=== PATIENT | female | born 1950 | race Caucasian/White ===

== ENCOUNTER 2024-08-29 11:36 | Emergency (ER) | payer OTHER ==
--- NOTE | 2024-08-29 13:07 | RAD REPORT ---
EXAMINATION: US LEFT LOWER EXTREMITY VENOUS DOPPLER CLINICAL INDICATION: [facility] MAIN left lower ext SWELLING Bed Name: 2 Y TECHNIQUE: Complete bilateral duplex sonography of the LEFT lower extremity veins was performed. The examination included compression for vein patency, color Doppler imaging and flow augmentation in response to distal compression of the distal external iliac, common femoral, femoral, popliteal, tibi al, and great and small saphenous veins. COMPARISON: No prior exam. FINDINGS: Duplex sonography testing of the veins of the LEFT lower extremity was performed. Color flow imaging extensive hypoechoic occlusive thrombus starting at the popliteal artery, to the level of the common femoral vein. The posterior tibial veins are patent and compressible. Mild subcutaneous soft t issue edema. IMPRESSION: Extensive DVT of the left lower extremity from the level of the popliteal vein to the common femoral vein. THIS REPORT CONTAINS FINDINGS THAT MAY BE CRITICAL TO PATIENT CARE. Preliminary findings were communi cated by the performing machine rigger to RON Short on 08/29/2024 12:20 PM..
[2024-08-29 13:08] LABS: Absolute Basophils 0.1 K/uL (0-0.5); Absolute Eosinophils 0.7 K/uL (0-0.5); Absolute Lymphocytes (CBC) 1.2 K/uL (0.7-4.9); Absolute Monocytes 0.4 K/uL (0.1-1.3); Absolute Neutrophil 4.3 K/uL (1.8-8.0); Basophils % 0.8 % (0-1.3); Eosinophils % 10.2 % (0-4.4); Hematocrit 32.5 % (36.0-45.0); Lymphocytes % 18.6 % (15.3-44.8); MCH 29.8 pg (27.0-35.0); MCHC 33.9 g/dL (32.0-36.0); MCV 87.8 fL (80-100); MPV 7.2 fL (7.6-11.3); Monocytes % 6.3 % (3.3-12.3); Neutrophils % 64.1 % (41.7-73.7); Platelets 271 thou/uL (152-406); Red Cell Distribution Width 12.7 % (12.1-15.2)
[2024-08-29 13:27] LABS: Anion Gap 8.4 mEq/L (5.0-15.0); Potassium 3.4 mEq/L (3.5-5.1); Troponin High Sensitivity 7.6 pg/mL (<58.9)
--- NOTE | 2024-08-29 14:33 | RAD REPORT ---
EXAM: CT Chest For Pe Angio TECHNIQUE: CT angiogram of the chest was performed following intravenous contrast administration, inc luding sagittal and coronal as well as maximum intensity projection reformats. One or more of the following dose reduction techniques were used: Automated exposure control, adjustment of the mA and k V according to patient size, and iterative reconstruction. Unless otherwise specified, incidental findings do not require dedicated imaging follow-up. INDICATION: [facility] MAIN PE Bed Name: 2 Y COMPARISON: None. FINDINGS: LINES/TUBES: None. PULMONARY ARTERIES: Main pulmonary arteries are normal in caliber. No filling defects within the pul monary arteries to suggest pulmonary embolus. LUNGS AND AIRWAYS: The lungs and central airways are normal without focal abnormality apart from mild bibasilar platelike atelectasis. PLEURA: No effusion or pneumothorax. HEART AND MEDIASTINUM: The visualized thyroid gland is normal. No mediastinal, hilar, or axillary lym phadenopathy. Heart is unremarkable. No pericardial effusion. SOFT TISSUES AND BONES: No acute osseous abnormality. No significant soft tissue finding. UPPER ABDOMEN: Unremarkable. IMPRESSION: No evidence of acute central pulmonary emboli. No suspicious intrathoracic findings..
--- NOTE | 2024-08-29 15:02 | ER ---
Nurse's Notes [facility] Name: Viola Gilbert Age: 74 yrs Sex: Female : 1950 Arrival Date: 08/29/2024 Time: 11:36 Bed 2 Private MD: Diagnosis: Acute embolism and thrombosis of other specified deep vein of left lower extremity Presentation: 08/29 11:58 Chief complaint: Patient states: LLE EDEMA x2 WK, DENIES TRAUMA. Coronavirus screen: At bp this time, the client does not indicate any symptoms associated with coronavirus-19. Ebola Screen: No symptoms or risks identified at this time. Initial Sepsis Screen: Does the patient meet any 2 criteria? No. Patient's initial sepsis screen is negative. Does the patient have a suspected source of infection? No. Patient's initial sepsis screen is negative. Risk Assessment: Do you want to hurt yourself or someone else? Patient reports no desire to harm self or others. Onset of symptoms is unknown. 11:58 Method Of Arrival: Ambulatory bp 11:58 Acuity: CAROLYN 4 bp Triage Assessment: 11:59 General: Appears in no apparent distress. Behavior is calm, cooperative, appropriate bp for age. Pain: Complains of pain in left leg. EENT: No deficits noted. Neuro: No deficits noted. Cardiovascular: No deficits noted. Respiratory: No deficits noted. GI: No signs and/or symptoms were reported involving the gastrointestinal system. : No signs and/or symptoms were reported regarding the genitourinary system. Derm: No deficits noted. Musculoskeletal: Swelling present in left leg. Historical: - Allergies: 11:59 Codeine; bp - PMHx: 11:59 Hypertensive disorder; bp - Immunization history:: Adult Immunizations up to date. - Infectious Disease History:: Denies. - Social history:: Smoking status: Patient denies any tobacco usage or history of. Screenin:[facility] ED Fall Risk Assessment (Adult) History of falling in the last 3 months, bp including since admission No falls in past 3 months (0 pts) Confusion or Disorientation No (0 pts) Intoxicated or Sedated No (0 pts) Impaired Gait No (0 pts) Mobility Assist Device Used No (0 pt) Altered Elimination No (0 pt) Score/Fall Risk Level 0 - 2 = Low Risk. Abuse screen: Denies threats or abuse. Denies injuries from another. Nutritional screening: No deficits noted. Tuberculosis screening: No symptoms or risk factors identified. Assessment: 12:00 General: Appears in no apparent distress. comfortable. bp 14:00 Reassessment: Patient appears in no apparent distress at this time. Patient is alert, bp oriented x 3, equal unlabored respirations, skin warm/dry/pink. 16:09 Reassessment: ADMIT CANCELLED. PT DC HOME. bp Vital Signs: 11:58 BP 169 / 82; Pulse 87; Resp 16; Temp 98; Pulse Ox 100% ; Weight 61 kg; Height 5 ft. 3 bp in. ; 16:09 BP 155 / 78; Pulse 82; Resp 16; Pulse Ox 100% ; bp 11:58 Body Mass Index 23.82 (61.00 kg, 160.02 cm) bp ED Course: 11:41 Patient arrived in ED. ra3 11:46 Miriam Mcwilliams FNP-C is PHCP. kb 11:46 Cooper Knowles MD is Attending Physician. kb 11:54 Chele Dunbar, LAQUITA is Primary Nurse. bp 11:59 Triage completed. bp 11:59 Arm band placed on. bp 12:00 Patient has correct armband on for positive identification. bp 12:25 US Extremity Venous Unilateral Ltd In Process Unspecified. EDMS 12:53 Initial lab(s) drawn, by ED staff, sent to lab. EKG done, by ED staff, reviewed by bp Miriam CLARKE. Inserted saline lock: 20 gauge in left antecubital area, using aseptic technique. Blood collected. Flushed with 10 mL NS. 13:21 PHCP role handed off by Miriam Mcwilliams FNP-C kb 13:21 Chan Akhtar FNP-C is PHCP. kb 14:08 CT Chest For PE Angio In Process Unspecified. EDMS 15:01 Cristopher Castañeda MD is Hospitalizing Provider. dr5 16:09 No provider procedures requiring assistance completed. IV discontinued, intact, bp bleeding controlled, No redness/swelling at site. Pressure dressing applied. Administered Medications: 15:30 Drug: Enoxaparin Sub-Q 1 mg/kg Sub-Q once Route: Sub-Q; Site: right lower abdomen; ss 16:08 Follow up: Response: No adverse reaction bp Medication: 12:00 VIS not applicable for this client. bp Outcome: 15:02 Decision to Hospitalize by Provider. dr5 15:55 Discharge ordered by . dr5 16:09 Discharged to home ambulatory, with family, bp 16:09 Condition: stable 16:09 Discharge instructions given to patient, Instructed on discharge instructions, follow up and referral plans. medication usage, Demonstrated understanding of instructions, follow-up care, medications, Prescriptions given X 1, 16:10 Patient left the ED. bp Signatures: Dispatcher [employer] EDMS Miriam Mcwilliams, [facility] [employer]-Ckb Sweetie Borja, RN RN ss Chele Dunbar, LAQUITA RN bp Divina Barbour ra3 Chan Akhtar FNP-C [facility] SALES-Cdr5 Corrections: (The following items were deleted from the chart) 15:13 11:58 BP 169 / 82; Pulse 87bpm; Resp 16bpm; Pulse Ox 100%; Temp 98F; bp bp
--- NOTE | 2024-08-29 15:02 | EDPHYS ---
Physician Documentation [facility] Name: Viola Gilbert Age: 74 yrs Sex: Female : 1950 Arrival Date: 08/29/2024 Time: 11:36 Bed 2 Private MD: ED Physician Copoer Knowles HPI: 08/29 11:52 This 74 yrs old Female presents to ER via Unassigned with complaints of Leg Swelling - kb left. 11:52 Pt is a 74 year old female who presents for left lower extremity edema that has been kb intermittent for 2 weeks. States she was doing yard work prior to his and was bitten by some insects. STates her had the same thing happen, but he is better and hers has continued. Denies fever, shortness of breath. . Historical: - Allergies: 11:59 Codeine; bp - PMHx: 11:59 Hypertensive disorder; bp - Immunization history:: Adult Immunizations up to date. - Infectious Disease History:: Denies. - Social history:: Smoking status: Patient denies any tobacco usage or history of. ROS: 11:52 Constitutional: As per HPI kb Exam: 11:52 Constitutional: This is a well developed, well nourished patient who is awake, alert, kb and in no acute distress. Head/Face: Normocephalic, atraumatic. ENT: Moist Mucous membranes Cardiovascular: Regular rate Respiratory: Respirations even and unlabored. No increased work of breathing. Talking in full sentences Skin: Warm, dry with normal turgor. Normal color. Neuro: Awake and alert, GCS 15, oriented to person, place, time, and situation. 11:52 Musculoskeletal/extremity: Extremities: grossly normal except: noted in the left leg: swelling, ROM: intact in all extremities, Circulation is intact in all extremities. Sensation intact. Weight bearing: able to fully bear weight, 13:25 ECG was reviewed by the Attending Physician. kb Vital Signs: 11:58 BP 169 / 82; Pulse 87; Resp 16; Temp 98; Pulse Ox 100% ; Weight 61 kg; Height 5 ft. 3 bp in. ; 16:09 BP 155 / 78; Pulse 82; Resp 16; Pulse Ox 100% ; bp 11:58 Body Mass Index 23.82 (61.00 kg, 160.02 cm) bp MDM: 11:46 Medical Screening Exam initiated kb 13:20 Differential diagnosis: dvt, pe. Data reviewed: vital signs, nurses notes. Transition kb of care: After a detail discussion of the patient's case, care is transferred to Chan Akhtar [facility]. 13:30 Consideration of Admission/Observation Patient was admitted/placed on observation. dr5 Escalation of care including admission/observation considered. Management of patient was discussed with the following: Manager Project: Gerald / Maddy and Dr. Knowles. Care significantly affected by the following chronic conditions: Hypertension. Care significantly affected by the following Social Determinants of Health: Poor access to healthcare and/or lack of insurance, Poor access to transportation. Counseling: I had a detailed discussion with the patient and/or guardian regarding the historical points, exam findings, and any diagnostic results supporting the discharge/admit diagnosis, the presence of at least one elevated blood pressure reading (>120/80) during this emergency department visit, lab results, radiology results, the need for further work-up and treatment in the hospital, to return to the emergency department if symptoms worsen or persist or if there are any questions or concerns that arise at home. 15:51 ED course: Received patient from Miriam. Pt has left leg swelling. CT PE returned with dr5 no PE or right heart strain. Discussed case with Dr. Knowles who recommended admission. Admitted to Dr. Castañeda.. 15:56 ED course: Dr. Castañeda evaluated patient and decided she is able to continue dr5 management outpatient. Xarelto sent by Gerald. All questions answered to patient.. 08/29 12:21 Order name: Basic Metabolic Panel; Complete Time: 13:31 kb 08/29 12:21 Order name: CBC with Diff; Complete Time: 13:20 kb 08/29 12:21 Order name: Troponin HS; Complete Time: 13:31 kb 08/29 11:54 Order name: US Extremity Venous Unilateral Ltd; Complete Time: 13:07 kb 08/29 12:21 Order name: CT Chest For PE Angio; Complete Time: 14:44 kb 08/29 12:21 Order name: EKG; Complete Time: 12:22 kb 08/29 12:21 Order name: Cardiac monitoring; Complete Time: 12:53 kb 08/29 12:21 Order name: EKG - Nurse/Tech; Complete Time: 13:04 kb 08/29 12:21 Order name: IV Saline Lock; Complete Time: 12:53 kb 08/29 12:21 Order name: Labs collected and sent; Complete Time: 12:53 kb 08/29 12:21 Order name: O2 Per Protocol; Complete Time: 12:53 kb 08/29 12:21 Order name: O2 Sat Monitoring; Complete Time: 12:53 kb EC:25 Rate is 74 beats/min. Rhythm is regular. QRS [place] is Normal. [place] interval is normal at kb 170 msec. QRS interval is normal at 84 msec. QT interval is normal at 448 msec. Administered Medications: 15:30 Drug: Enoxaparin Sub-Q 1 mg/kg Sub-Q once Route: Sub-Q; Site: right lower abdomen; ss 16:08 Follow up: Response: No adverse reaction bp Disposition Summary: 08/29/24 15:55 Discharge Ordered Notes: Location: Home(08/29/24 15:55) dr5 Condition: Stable(08/29/24 15:55) dr5 Diagnosis - Acute embolism and thrombosis of other specified deep vein of left lower dr5 extremity(08/29/24 15:55) Followup: dr5 - With: Emergency Department - When: As needed - Reason: Worsening of condition Followup: dr5 - With: Private Physician - When: 1 - 2 days - Reason: Recheck today's complaints, Continuance of care, Re-evaluation by your physician Discharge Instructions: - Discharge Summary Sheet dr5 - Deep Vein Thrombosis dr5 Forms: - Medication Reconciliation Form dr5 - Antibiotic Education dr5 - Patient Portal Instructions dr5 - Leadership Thank You Letter dr5 Signatures: Dispatcher [employer] [facility] Miriam Mcwilliams, [employer]-C [employer]-Ckb Sweetie Borja RN RN Gerald Enrique, [employer] H[employer]-C [employer] H[employer]ENER-Cla1 Chele Dunbar, RN RN bp Chan Akhtar, FL[employer] H[employer]-C FL[employer] H[employer]ENER-Cdr5 Corrections: (The following items were deleted from the chart) 11:55 11:54 Extremity Venous Uni Ltd+[email or web address].[email or web address] ordered. [facility] EDSD 15:55 15:02 Inpatient Admission dr5 dr5 15:55 15:02 MaddyCristopher dr5 dr5 15:55 15:02 Telemetry/MedSurg (Inpatient) dr5 dr5 15:55 15:02 Stable dr5 dr5 15:55 15:02 new dr5 dr5 15:55 15:02 are unchanged dr5 dr5 15: 15:02 Standard dr5 dr5 15: 15:02 dr5 dr5 15: 15:02 Acute embolism and thrombosis of other specified deep vein of left lower dr5 extremity dr5 16:11 13:30 Admission orders: after a detailed discussion of the patient's condition and dr5 case, the admit orders are written by me. dr5
[2024-08-29] MEDS ORDERED: ENOXAPARIN 60 MG/0.6 ML SQ ONE (15:31)
--- NOTE | 2024-08-29 16:19 | P.CNS ---
Date of Consult: 08/29/24 Reason for Consult: DVT Requesting Physician: Cooper Knowles Chief Complaint: Left leg swelling/DVT History of Present Illness: Left lower extremity swelling for the last 2 weeks. No injury, history of DVT, recent travel, infection, smoking, hormone therapy or prolonged immobility. Home Medications: Rivaroxaban [Xarelto] 15 mg PO BID #42 tablet 08/29/24 - Past Medical/Surgical History -: HTN -: HLD -: Hysterectomy Psychosocial/ Personal History: Retired, lives at home with family - Social History Smoking Status: Never smoker Alcohol use: No CD- Drugs: No Caffeine use: Yes Place of Residence: Home Review of Systems 10-point ROS is otherwise unremarkable Musculoskeletal: Other (left leg swelling) Physical Examination General: Alert, In no apparent distress, Oriented x3 HEENT: Atraumatic, PERRLA, EOMI Neck: Supple, 2+ carotid pulse no bruit, No LAD Respiratory: Clear to auscultation bilaterally, Normal air movement Cardiovascular: Regular rate/rhythm, Normal S1 S2 Gastrointestinal: Normal bowel sounds, No tenderness Musculoskeletal: No tenderness, Swelling (LLE) Integumentary: No rashes Neurological: Normal gait, Normal speech, Normal tone, Normal affect Laboratory Data (last 24 hrs) 08/29/24 08/29/24 12:54 12:54 WBC 6.70 Hgb 11.0 L Hct 32.5 L Plt Count 271 Sodium 141 Potassium 3.4 L BUN 20 H Creatinine 1.01 Glucose 102 Conclusions/Impression: Assessment LLE DVT HTN HLD Plan LLE DVT Seen by hospitalist/pulmonary Dr. Castañeda Moderate swelling, CTA negative for PE, pain well controlled RX sent for xarelto to [facility], confirmed affordable for patient Got a of lovenox shot in ED, plan to start xarelto tomorrow morning at home Follow up with Dr. Castañeda in 2 weeks Will need anticoagulation for at least 3 months, likely longer HTN HLD Continue home meds Critical Care: No Time Spent Managing Pts care (In Minutes): 35
[2024-08-30 02:51] VITALS: TEMP 98; O2SAT 100
[2024-08-30 02:52] VITALS: BP 155/78
--- NOTE | 2024-08-30 15:03 | EKG ---
Test Date: 2024-08-29 Test Time: 13:00:22 Pie Icer Machine: BP MEASUREMENT RESULTS: Intervals: Rate: 74 VT: 170 QRSD: 84 QT: 404 QTc: 448 [place]: P: 75 VT: 170 QRS: 61 T: 72 INTERPRETIVE STATEMENTS: Normal sinus rhythm Normal ECG No previous ECG available for comparison Electronically Signed On 08-30-24 15:02:47 CDT by Bunny Mari
== END 2024-08-29 16:10 | disposition home or self-care (01) ==
LOC: ER 11:36
DX: I82.492 Acute embolism and thrombosis of other specified deep vein of left lower extremity (principal); I10 Essential (primary) hypertension; Z86.718 Personal history of other venous thrombosis and embolism; Z79.01 Long term (current) use of anticoagulants
CPT/HCPCS: 93005; 85025; 80048; 36415; 84484; 71275; 93971; 96372; 99284; J1650